=== PATIENT | male | born 1955 | race Caucasian/White ===

== ENCOUNTER 2023-08-09 18:56 | Inpatient (IN) | payer MEDICARE, OTHER ==
[2023-08-09 21:18] LABS: ALT 30 U/L (4-49); AST 30 U/L (17-59); African American GFR (CKD) 78 (>60 ml/min/1.73 sqM); Albumin 4.7 g/dL (3.5-5.0); Alkaline Phosphatase 81 U/L (38-126); Amylase 67 U/L (30-110); Anion Gap 16 mmol/L; Blood Urea Nitrogen 40 mg/dL (9-20); Calcium 10.2 mg/dL (8.4-10.2); Carbon Dioxide 24 mmol/L (22-30); Chloride 94 mmol/L (98-107); Glucose 187 mg/dL (74-99); Lipase 26 U/L (23-300); Non-African American GFR(CKD) 68 (>60 ml/min/1.73 sqM); Potassium 3.9 mmol/L (3.5-5.1); Sodium 134 mmol/L (137-145); Total Bilirubin 0.9 mg/dL (0.2-1.3); Total Protein 7.9 g/dL (6.3-8.2)
[2023-08-09 21:19] LABS: Basophils % (A) 0 %; Eosinophils % (A) 0 %; HCT 44.2 % (39.0-53.0); HGB 14.8 gm/dL (13.0-17.5); Lymphocytes # (A) 1.6 k/uL (1.0-4.8); Lymphocytes % (A) 8 %; MCH 31.4 pg (25.0-35.0); MCHC 33.4 g/dL (31.0-37.0); MCV 93.9 fL (80.0-100.0); Mean Platelet Volume 8.5; Monocytes # (A) 0.8 k/uL (0-1.0); Monocytes % (A) 4 %; Neutrophils # (A) 16.6 k/uL (1.3-7.7); Neutrophils % (A) 86 %; Platelet Count 222 k/uL (150-450); RBC 4.71 m/uL (4.30-5.90); RDW 13.1 % (11.5-15.5); WBC 19.3 k/uL (3.8-10.6)
[2023-08-09] MEDS ORDERED: VANCOMYCIN IV PER PHARMACY 1 EACH MISC MISCELLANE PRN (21:30)
[2023-08-09] MEDS ORDERED: SODIUM CHLORIDE 0.9% 1,000 ML IV STA (21:30)
[2023-08-09] MEDS ORDERED: SODIUM CHLORIDE 0.9% 2,000 ML IV STA (21:30)
[2023-08-09] MEDS ORDERED: PANTOPRAZOLE 40 MG/10 ML VIAL IVP STA (21:36)
[2023-08-09] MEDS ORDERED: HYDROmorphone 1 MG/ML 1 ML SYRINGE IVP STA (21:36)
[2023-08-09] MEDS ORDERED: ONDANSETRON 4 MG/2 ML VIAL IVP STA (21:36)
[2023-08-09] MEDS ORDERED: VANCOMYCIN 1,500 MG in SODIUM CHLORIDE 0.9% 500 ML 500 ML IVPB STA (21:39)
[2023-08-09] MEDS ORDERED: PIPERACILLIN-TAZOBACTAM 3.375 GM in SODIUM CHLORIDE 0.9% 100 ML IVPB STA ×2 (21:39→22:27)
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
--- NOTE | 2023-08-09 22:40 | CT ---
EXAM: CT Abdomen and Pelvis With Intravenous Contrast CLINICAL HISTORY: ITS.REASON CT Reason: generalized abd pain, distention TECHNIQUE: Axial computed tomography images of the abdomen and pelvis with intravenous contrast. CTDI is 34.66 mGy and DLP is 1592.3 mGy-cm. This CT exam was performed using one or more of the following dose reduction techniques: automated exposure control, adjustment of the mA and/or kV according to patient size, and/or use of iterative reconstruction technique. COMPARISON: No relevant prior studies available. FINDINGS: Lung bases: Unremarkable. No mass. No consolidation. ABDOMEN: Liver: Unremarkable. No mass. Gallbladder and bile ducts: Unremarkable. No calcified stones. No ductal dilation. Pancreas: Severe atrophy of the pancreas. No ductal dilation. Spleen: Unremarkable. No splenomegaly. Adrenals: Unremarkable. No mass. Kidneys and ureters: Unremarkable. No solid mass. No hydronephrosis. Stomach and bowel: Dilated small bowel measuring up to 3.9 cm, consistent with small bowel obstruction. The transition point is located in the mid abdomen on coronal image 32. Surgical evaluation recommended. No mucosal thickening. PELVIS: Appendix: No findings to suggest acute appendicitis. Bladder: Unremarkable. No mass. Reproductive: Prostate radiation markers. ABDOMEN and PELVIS: Intraperitoneal space: Unremarkable. No free air. No significant fluid collection. Bones/joints: Degenerative changes of the spine. No acute fracture. No dislocation. Soft tissues: Unremarkable. Vasculature: Atherosclerotic changes of the aorta. No abdominal aortic aneurysm. Lymph nodes: Unremarkable. No enlarged lymph nodes. IMPRESSION: 1. Dilated small bowel measuring up to 3.9 cm, consistent with small bowel obstruction. The transition point is located in the mid abdomen on coronal image 32. Surgical evaluation recommended. 2. Severe atrophy of the pancreas.
[2023-08-09] MEDS ORDERED: NALOXONE 0.4 MG/ML 1 ML VIAL IV PRN (23:11)
[2023-08-09] MEDS ORDERED: ONDANSETRON 4 MG/2 ML VIAL IVP PRN (23:11)
[2023-08-09] MEDS: HYDROmorphone 1 MG/ML 1 ML SYRINGE IVP PRN (23:18)
--- NOTE | 2023-08-09 23:29 | XR ---
EXAM: XR Chest, 1 View CLINICAL HISTORY: ITS.REASON XR Reason: NG placement TECHNIQUE: Frontal view of the chest. COMPARISON: No relevant prior studies available. FINDINGS: Lungs: Unremarkable. No consolidation. Pleural space: Unremarkable. No pneumothorax. Heart: Unremarkable. No cardiomegaly. Mediastinum: Unremarkable. Normal mediastinal contour. Bones/joints: Unremarkable. No acute fracture. Tubes, lines and devices: Feeding tube terminates in the stomach. IMPRESSION: Feeding tube terminates in the stomach.
[2023-08-10 01:17] LABS: Appearance,Urine Clear (Clear); Color,Urine Light Yellow
[2023-08-10 01:18] LABS: Bilirubin,Urine Negative (Negative); Blood,Urine Negative (Negative); Glucose,Urine (UA) Negative (Negative); Ketones,Urine 1+ (Negative); Leukocyte Esterase,Urine Negative (Negative); Nitrite,Urine Negative (Negative); Protein,Urine Negative (Negative); Urobilinogen,Urine 0.2 mg/dL (<2.0)
[2023-08-10] MEDS: HYDROmorphone 1 MG/ML 1 ML SYRINGE IVP PRN ×6 (02:07→18:21)
[2023-08-10] MEDS: PIPERACILLIN-TAZOBACTAM 3.375 GM in SODIUM CHLORIDE 0.9% 100 ML IVPB SCH ×3 (05:17→20:44)
[2023-08-10] MEDS: PANTOPRAZOLE 40 MG/10 ML VIAL IV SCH (08:45)
[2023-08-10] MEDS ORDERED: MORPHINE SULFATE 4 MG/ML SYRINGE IVP PRN (09:57)
[2023-08-10] MEDS: MORPHINE SULFATE 4 MG/ML SYRINGE IVP PRN ×10 (10:16→23:22)
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
[2023-08-10 12:43] LABS: African American GFR (CKD) 88 (>60 ml/min/1.73 sqM); Anion Gap 8 mmol/L; Blood Urea Nitrogen 32 mg/dL (9-20); Calcium 8.4 mg/dL (8.4-10.2); Carbon Dioxide 27 mmol/L (22-30); Chloride 101 mmol/L (98-107); Glucose 130 mg/dL (74-99); Non-African American GFR(CKD) 76 (>60 ml/min/1.73 sqM); Potassium 3.7 mmol/L (3.5-5.1); Sodium 136 mmol/L (137-145)
[2023-08-10 12:47] LABS: Basophils % (A) 0 %; Eosinophils % (A) 0 %; HCT 39.4 % (39.0-53.0); HGB 13.1 gm/dL (13.0-17.5); Lymphocytes # (A) 0.6 k/uL (1.0-4.8); Lymphocytes % (A) 5 %; MCH 31.8 pg (25.0-35.0); MCHC 33.2 g/dL (31.0-37.0); MCV 95.9 fL (80.0-100.0); Mean Platelet Volume 8.1; Monocytes # (A) 0.4 k/uL (0-1.0); Monocytes % (A) 3 %; Neutrophils % (A) 91 %; Platelet Count 162 k/uL (150-450); RBC 4.11 m/uL (4.30-5.90); RDW 12.9 % (11.5-15.5); WBC 13.2 k/uL (3.8-10.6)
[2023-08-10] MEDS ORDERED: TRIAMCINOLONE 0.1% CREAM 80 GM TUBE TOPICAL PRN (13:22)
--- NOTE | 2023-08-10 13:31 | P.CONS ---
History of Present Illness - Reason for Consult Coronary artery disease multiple other medical problems - History of Present Illness 67-year-old male admitted for small bowel obstruction with transition point in the mid abdomen. Patient is an NG tube still draining patient was started on IV fluids patient is on methadone as a part of her opiate withdrawal protocol. Unfortunately we cannot do methadone because of which patient is getting morphine and Dilaudid at this time. Patient had history of coronary artery disease with the cardiac catheterization and stents about any ago patient was started back on Plavix. REVIEW OF SYSTEMS: CONSTITUTIONAL: No fever, no malaise, no fatigue. HEENT: No recent visual problems or hearing problems. Denied any sore throat. CARDIOVASCULAR: No chest pain, orthopnea, PND, no palpitations, no syncope. PULMONARY: No shortness of breath, no cough, no hemoptysis. GASTROINTESTINAL: Patient had abdominal pain nausea vomiting on admission NEUROLOGICAL: No headaches, no weakness, no numbness. HEMATOLOGICAL: Denies any bleeding or petechiae. GENITOURINARY: Denies any burning micturition, frequency, or urgency. MUSCULOSKELETAL/RHEUMATOLOGICAL: Denies any joint pain, swelling, or any muscle pain. ENDOCRINE: Denies any polyuria or polydipsia. The rest of the 14-point review of systems is negative. PHYSICAL EXAMINATION: GENERAL: The patient is alert and oriented x3, not in any acute distress. Well developed, well nourished. HEENT: Pupils are round and equally reacting to light. EOMI. No scleral icterus. No conjunctival pallor. Normocephalic, atraumatic. No pharyngeal erythema. No thyromegaly. CARDIOVASCULAR: S1 and S2 present. No murmurs, rubs, or gallops. PULMONARY: Chest is clear to auscultation, no wheezing or crackles. ABDOMEN: Soft, NG tube in place patient does have bowel sounds MUSCULOSKELETAL: No joint swelling or deformity. EXTREMITIES: No cyanosis, clubbing, or pedal edema. NEUROLOGICAL: Gross neurological examination did not reveal any focal deficits. SKIN: No rashes. Assessment and plan -Small bowel obstruction: The 30 management with NG tube IV fluids at this time. -Coronary artery disease patient will be resumed on Plavix which can be given orally and clamp the NG tube can get rectal aspirin. -Depression sertraline will be resumed -History of opiate abuse and is on methadone for withdrawals. Patient is r eceiving frequent doses of of morphine and Dilaudid at this time Hypothyroidism -Hyperlipidemia For above-mentioned last medical problems medications can be held until patient can take by mouth medications DVT prophylaxis: As per primary service Past Medical History Past Medical History: Cancer, Hyperlipidemia, Hypertension Past Surgical History: Heart Catheterization With Stent Past Psychological History: No Psychological Hx Reported Past Alcohol Use History: None Reported Past Drug Use History: Opiates, Prescription Drug Abuse Medications and Allergies Home Medications Medication Instructions Recorded Confirmed Type Clopidogrel [Plavix] 75 mg PO DAILY 08/10/23 08/10/23 History Evolocumab [Repatha Pushtronex] 420 mg SQ Q28D 08/10/23 08/10/23 History Levothyroxine Sodium [Synthroid] 25 mcg PO DAILY 08/10/23 08/10/23 History Losartan Potassium 100 mg PO DAILY 08/10/23 08/10/23 History Methadone HCl [Methadone Intensol] 178 mg PO DAILY 08/10/23 08/10/23 History Pantoprazole [Protonix] 40 mg PO DAILY 08/10/23 08/10/23 History Rosuvastatin [Crestor] 20 mg PO DAILY 08/10/23 08/10/23 History Sertraline HCl [Zoloft] 50 mg PO DAILY 08/10/23 08/10/23 History Triamcinolone 0.1% Cream [Kenalog 1 applic TOPICAL BID PRN 08/10/23 08/10/23 History 0.1% Cream] hydroCHLOROthiazide 12.5 mg PO DAILY 08/10/23 08/10/23 History Allergies Allergy/AdvReac Type Severity Reaction Status Date / Time No Known Allergies Allergy Verified 08/10/23 08:24 Physical Exam Vitals: Vital Signs Temp Pulse Resp BP Pulse Ox 08/10/23 11:21 89 18 141/75 96 08/10/23 07:51 98.1 F 87 16 150/90 95 08/10/23 04:30 81 18 161/86 95 08/10/23 02:00 80 18 163/98 95 08/10/23 00:54 81 17 177/107 95 08/09/23 23:16 89 16 177/97 95 08/09/23 22:09 91 16 190/111 98 08/09/23 19:48 97.9 F 77 22 165/100 99 Intake and Output 08/09/23 08/10/23 08/10/23 22:59 06:59 14:59 Other: Weight 83.915 kg Results CBC & Chem 7: 08/10/23 12:18 08/10/23 12:18 Labs: Abnormal Lab Results - Last 24 Hours (Table) 08/09/23 08/09/23 08/09/23 Range/Units 20:33 20:33 20:33 WBC 19.3 H (3.8-10.6) k/uL RBC (4.30-5.90) m/uL Neutrophils # 16.6 H (1.3-7.7) k/uL Lymphocytes # (1.0-4.8) k/uL Sodium 134 L (137-145) mmol/L Chloride 94 L (98-107) mmol/L BUN 40 H (9-20) mg/dL Glucose 187 H (74-99) mg/dL Plasma Lactic Acid Faheem 4.2 H* (0.7-2.0) mmol/L Urine Ketones (Negative) 08/10/23 08/10/23 08/10/23 Range/Units 00:05 12:18 12:18 WBC 13.2 H (3.8-10.6) k/uL RBC 4.11 L (4.30-5.90) m/uL Neutrophils # 12.0 H (1.3-7.7) k/uL Lymphocytes # 0.6 L (1.0-4.8) k/uL Sodium 136 L (137-145) mmol/L Chloride (98-107) mmol/L BUN 32 H (9-20) mg/dL Glucose 130 H (74-99) mg/dL Plasma Lactic Acid Faheem (0.7-2.0) mmol/L Urine Ketones 1+ H (Negative)
[2023-08-10] MEDS: SERTRALINE 50 MG TAB PO SCH (15:33)
[2023-08-10] MEDS: CLOPIDOGREL 75 MG TAB PO SCH (15:33)
[2023-08-10] MEDS: hydrALAZINE HCL 20 MG/ML 1 ML VIAL IVP PRN (17:37)
[2023-08-10] MEDS: VANCOMYCIN 1,500 MG in SODIUM CHLORIDE 0.9% 500 ML 500 ML IVPB SCH (17:51)
[2023-08-10] MEDS: HEPARIN SODIUM,PORCINE 5,000 UNIT/ML 1 ML VIAL SQ SCH (20:43)
[2023-08-10] MEDS ORDERED: ALPRAZolam 0.5 MG TAB PO STA (21:48)
[2023-08-11] MEDS: MORPHINE SULFATE 4 MG/ML SYRINGE IVP PRN ×7 (00:49→08:54)
[2023-08-11] MEDS: hydrALAZINE HCL 20 MG/ML 1 ML VIAL IVP PRN ×2 (01:43→08:12)
[2023-08-11] MEDS: PIPERACILLIN-TAZOBACTAM 3.375 GM in SODIUM CHLORIDE 0.9% 100 ML IVPB SCH ×3 (04:04→23:13)
[2023-08-11] MEDS: HEPARIN SODIUM,PORCINE 5,000 UNIT/ML 1 ML VIAL SQ SCH ×2 (07:42→20:47)
[2023-08-11] MEDS: CLOPIDOGREL 75 MG TAB PO SCH (07:42)
[2023-08-11] MEDS: SERTRALINE 50 MG TAB PO SCH (07:42)
[2023-08-11] MEDS: PANTOPRAZOLE 40 MG/10 ML VIAL IV SCH (07:43)
[2023-08-11] MEDS: VANCOMYCIN 1,500 MG in SODIUM CHLORIDE 0.9% 500 ML 500 ML IVPB SCH (08:12)
[2023-08-11 11:08] LABS: Basophils # (A) 0.03 X 10*3/uL (0.00-0.10); Basophils % (A) 0.2 %; Eosinophils # (A) 0.01 X 10*3/uL (0.04-0.35); Eosinophils % (A) 0.1 %; HCT 41.1 % (39.6-50.0); HGB 13.6 g/dL (13.0-17.0); Lymphocytes # (A) 0.77 X 10*3/uL (0.90-5.00); Lymphocytes % (A) 5.8 %; MCH 31.4 pg (27.0-32.0); MCHC 33.1 g/dL (32.0-37.0); MCV 94.9 FL (80.0-97.0); Mean Platelet Volume 11.4 FL (9.5-12.2); Monocytes # (A) 0.87 X 10*3/uL (0.20-1.00); Monocytes % (A) 6.6 %; NRBC Per 100 WBC 0 X 10*3/uL (0.00-0.01); Neutrophils # (A) 11.51 X 10*3/uL (1.80-7.70); Platelet Count 161 X 10*3/uL (140-440); RBC 4.33 X 10*6/uL (4.40-5.60); RDW 13.4 % (11.5-14.5); WBC 13.23 X 10*3/uL (4.50-10.00)
[2023-08-11 12:11] LABS: Blood Urea Nitrogen 26.4 mg/dL (9.0-27.0); Calcium 9.1 mg/dL (8.7-10.3); Carbon Dioxide 20.2 mmol/L (21.6-31.8); Chloride 103 mmol/L (96-109); Glucose 108 mg/dL (70-110); Potassium 3.7 mmol/L (3.5-5.5); Sodium 141 mmol/L (135-145)
[2023-08-11] MEDS: METHADONE 10 MG TAB PO SCH (13:11)
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
[2023-08-11] MEDS: SODIUM CHLORIDE 0.9% 1,000 ML IV SCH ×2 (21:02→23:19)
--- NOTE | 2023-08-12 05:53 | P.PN ---
Subjective Progress Note Date: 08/11/23 67-year-old male admitted for small bowel obstruction with transition point in the mid abdomen. Patient is an NG tube still draining patient was started on IV fluids patient is on methadone as a part of her opiate withdrawal protocol. Unfortunately we cannot do methadone because of which patient is getting morphine and Dilaudid at this time. Patient had history of coronary artery disease with the cardiac catheterization and stents about any ago patient was started back on Plavix. 08/11/2023 Patient evaluated today resting in bed reports improvement in his abdominal discomfort. He continues with NG tube in place, about 100 mls of drainage overnight. He remains NPO. He is requesting his methadone states he feels sick after going 24 hours without he has been on it for years. He is okay with the narcotics being discontinued. REVIEW OF SYSTEMS: CONSTITUTIONAL: No fever, no malaise, no fatigue. HEENT: No recent visual problems or hearing problems. Denied any sore throat. CARDIOVASCULAR: No chest pain, orthopnea, PND, no palpitations, no syncope. PULMONARY: No shortness of breath, no cough, no hemoptysis. GASTROINTESTINAL: Patient had abdominal pain nausea vomiting on admission NEUROLOGICAL: No headaches, no weakness, no numbness. PHYSICAL EXAMINATION: GENERAL: The patient is alert and oriented x3, not in any acute distress. Well developed, well nourished. HEENT: Pupils are round and equally reacting to light. EOMI. No scleral icterus. No conjunctival pallor. Normocephalic, atraumatic. No pharyngeal erythema. No thyromegaly. CARDIOVASCULAR: S1 and S2 present. No murmurs, rubs, or gallops. PULMONARY: Chest is clear to auscultation, no wheezing or crackles. ABDOMEN: Soft, NG tube in place patient does have bowel sounds MUSCULOSKELETAL: No joint swelling or deformity. EXTREMITIES: No cyanosis, clubbing, or pedal edema. NEUROLOGICAL: Gross neurological examination did not reveal any focal deficits. SKIN: No rashes. Assessment and plan -Small bowel obstruction: Conservative management with NG tube IV fluids at this time. -Coronary artery disease Plavix has been recommended to be held by primary team and clamp the NG tube can get rectal aspirin. -Depression sertraline will be resumed -History of opiate abuse and is on methadone for withdrawals. Patient is receiving frequent doses of of morphine and Dilaudid at this time which will be discontinued patient can be resumed on methadone. -Hypothyroidism -Hyperlipidemia For above-mentioned last medical problems medications can be held until patient can take by mouth medications DVT prophylaxis: As per primary service The impression and plan of care has been dictated by Maggie Mcdonnell, Nurse Practitioner as directed. Dr. Kartik MD I have performed a history and physical examination and medical decision making of this patient, discussed the same with the dictator, and agree with the dictators assessment and plan as written, documented as a scribe. Based on total visit time, I have performed more than 50% of this visit. Objective - Vital Signs Vital signs: Vital Signs Temp 98.4 F 08/12/23 01:09 Pulse 97 08/12/23 02:00 Resp 16 08/12/23 02:00 BP 166/87 08/12/23 01:09 Pulse Ox 94 L 08/12/23 01:09 FiO2 Intake & Output 08/11/23 08/11/23 08/12/23 06:59 18:59 06:59 Intake Total 600 Output Total 900 850 240 Balance -300 -850 -240 Intake: Intake, IV Titration 600 Amount Piperacillin-Tazobactam 3 100 .375 gm In Sodium Chloride 0.9% 100 ml @ 25 mls/hr IVPB Q8H [facility] Rx#: [id number] Vancomycin 1,500 mg In 500 Sodium Chloride 0.9% 500 ml 500 ml @ 167 mls/hr IVPB Q16H [facility] Rx#: [id number] Output: Gastric Drainage 100 850 Urine 800 240 Other: Voiding Method Urinal Urinal Urinal - Labs CBC & Chem 7: 08/11/23 05:45 08/11/23 05:45 Labs: Abnormal Lab Results - Last 24 Hours (Table) 08/11/23 08/11/23 Range/Units 05:45 05:45 WBC 13.23 H (4.50-10.00) X 10*3/uL RBC 4.33 L (4.40-5.60) X 10*6/uL Neutrophils # 11.51 H (1.80-7.70) X 10*3/uL Lymphocytes # 0.77 L (0.90-5.00) X 10*3/uL Eosinophils # 0.01 L (0.04-0.35) X 10*3/uL Carbon Dioxide 20.2 L (21.6-31.8) mmol/L Anion Gap 17.80 H (4.00-12.00) mmol/L BUN/Creatinine Ratio 26.40 H (12.00-20.00) Ratio Microbiology - Last 24 Hours (Table) 08/09/23 22:05 Blood Culture - Preliminary Blood 08/09/23 21:45 Blood Culture - Preliminary Blood Assessment and Plan Time with Patient: Less than 30
[2023-08-12] MEDS: PIPERACILLIN-TAZOBACTAM 3.375 GM in SODIUM CHLORIDE 0.9% 100 ML IVPB SCH ×3 (05:54→20:56)
[2023-08-12] MEDS ORDERED: Potassium Replacement Protocol 1 EACH MISC MISCELLANE PRN (09:23)
[2023-08-12] MEDS: METHADONE 10 MG TAB PO SCH (10:56)
[2023-08-12] MEDS: PANTOPRAZOLE 40 MG/10 ML VIAL IV SCH (11:31)
[2023-08-12] MEDS: hydrALAZINE HCL 20 MG/ML 1 ML VIAL IVP PRN (11:32)
[2023-08-12] MEDS: SERTRALINE 50 MG TAB PO SCH (11:34)
[2023-08-12] MEDS: HEPARIN SODIUM,PORCINE 5,000 UNIT/ML 1 ML VIAL SQ SCH ×2 (11:34→20:56)
[2023-08-12] MEDS: POTASSIUM CHLORIDE 10 MEQ in WATER FOR INJECTION 1 100ML.BAG IVPB SCH ×2 (11:42→15:59)
[2023-08-12 12:08] LABS: HCT 37.7 % (39.6-50.0); HGB 11.9 g/dL (13.0-17.0); MCH 32.1 pg (27.0-32.0); MCHC 31.6 g/dL (32.0-37.0); MCV 101.6 FL (80.0-97.0); Mean Platelet Volume 11.3 FL (9.5-12.2); NRBC Per 100 WBC 0 X 10*3/uL (0.00-0.01); Platelet Count 166 X 10*3/uL (140-440); RBC 3.71 X 10*6/uL (4.40-5.60); RDW 13.9 % (11.5-14.5); WBC 7.44 X 10*3/uL (4.50-10.00)
[2023-08-12 12:09] LABS: Basophils # (A) 0.03 X 10*3/uL (0.00-0.10); Basophils % (A) 0.4 %; Eosinophils # (A) 0.12 X 10*3/uL (0.04-0.35); Eosinophils % (A) 1.6 %; Lymphocytes # (A) 0.77 X 10*3/uL (0.90-5.00); Lymphocytes % (A) 10.3 %; Monocytes # (A) 0.51 X 10*3/uL (0.20-1.00); Monocytes % (A) 6.9 %; Neutrophils # (A) 5.97 X 10*3/uL (1.80-7.70); Neutrophils % (A) 80.3 %
[2023-08-12 13:57] VITALS: BMI 28.1
--- NOTE | 2023-08-12 15:37 | P.PN ---
Subjective Progress Note Date: 08/12/23 67-year-old male admitted for small bowel obstruction with transition point in the mid abdomen. Patient is an NG tube still draining patient was started on IV fluids patient is on methadone as a part of her opiate withdrawal protocol. Unfortunately we cannot do methadone because of which patient is getting morphine and Dilaudid at this time. Patient had history of coronary artery disease with the cardiac catheterization and stents about any ago patient was started back on Plavix. 08/11/2023 Patient evaluated today resting in bed reports improvement in his abdominal discomfort. He continues with NG tube in place, about 100 mls of drainage overnight. He remains NPO. He is requesting his methadone states he feels sick after going 24 hours without he has been on it for years. He is okay with the narcotics being discontinued. 08/12/2023 Patient remains on medical floor. NG tube in place about 70 mls of drainage overnight. He is not passing gas yet. Abdomen is softer has some sluggish bowel sounds. He was resumed on methadone reports pain has improved and less agitated. Avoid narcotics while on methadone. REVIEW OF SYSTEMS: CONSTITUTIONAL: No fever, no malaise, no fatigue. HEENT: No recent visual problems or hearing problems. Denied any sore throat. CARDIOVASCULAR: No chest pain, orthopnea, PND, no palpitations, no syncope. PULMONARY: No shortness of breath, no cough, no hemoptysis. GASTROINTESTINAL: Patient had abdominal pain nausea vomiting on admission NEUROLOGICAL: No headaches, no weakness, no numbness. PHYSICAL EXAMINATION: GENERAL: The patient is alert and oriented x3, not in any acute distress. Well developed, well nourished. HEENT: Pupils are round and equally reacting to light. EOMI. No scleral icterus. No conjunctival pallor. Normocephalic, atraumatic. No pharyngeal erythema. No thyromegaly. CARDIOVASCULAR: S1 and S2 present. No murmurs, rubs, or gallops. PULMONARY: Chest is clear to auscultation, no wheezing or crackles. ABDOMEN: Soft, NG tube in place patient does have bowel sounds MUSCULOSKELETAL: No joint swelling or deformity. EXTREMITIES: No cyanosis, clubbing, or pedal edema. NEUROLOGICAL: Gross neurological examination did not reveal any focal deficits. SKIN: No rashes. Assessment and plan -Small bowel obstruction: Conservative management with NG tube IV fluids at this time. -Coronary artery disease Plavix has been recommended to be held by primary team and clamp the NG tube can get rectal aspirin. -Depression sertraline will be resumed -History of opiate abuse and is on methadone for withdrawals. Patient is receiving frequent doses of of morphine and Dilaudid at this time which will be discontinued patient can be resumed on methadone. -Hypothyroidism -Hyperlipidemia For above-mentioned last medical problems medications can be held until patient can take by mouth medications DVT prophylaxis: As per primary service The impression and plan of care has been dictated by Maggie Mcdonnell, Nurse Practitioner as directed. Dr. Kartik MD I have performed a history and physical examination and medical decision making of this patient, discussed the same with the dictator, and agree with the dic tators assessment and plan as written, documented as a scribe. Based on total visit time, I have performed more than 50% of this visit. Objective - Vital Signs Vital signs: Vital Signs Temp 97.8 F 08/12/23 14:29 Pulse 89 08/12/23 14:29 Resp 14 08/12/23 14:29 BP 126/79 08/12/23 14:29 Pulse Ox 97 08/12/23 14:29 FiO2 Intake & Output 08/11/23 08/12/23 08/12/23 18:59 06:59 18:59 Output Total 850 310 Balance -850 -310 Weight 83.915 kg Output: Gastric Drainage 850 70 Urine 240 Other: Voiding Method Urinal Urinal Urinal - Labs CBC & Chem 7: 08/12/23 06:53 08/11/23 05:45 Labs: Abnormal Lab Results - Last 24 Hours (Table) 08/12/23 Range/Units 06:53 RBC 3.71 L (4.40-5.60) X 10*6/uL Hgb 11.9 L (13.0-17.0) g/dL Hct 37.7 L (39.6-50.0) % MCV 101.6 H (80.0-97.0) FL MCH 32.1 H (27.0-32.0) pg MCHC 31.6 L (32.0-37.0) g/dL Lymphocytes # 0.77 L (0.90-5.00) X 10*3/uL Microbiology - Last 24 Hours (Table) 08/09/23 22:05 Blood Culture - Preliminary Blood 08/09/23 21:45 Blood Culture - Preliminary Blood Assessment and Plan Time with Patient: Less than 30
[2023-08-12] MEDS: SODIUM CHLORIDE 0.9% 1,000 ML IV SCH (16:00)
[2023-08-12] MEDS ORDERED: IOPAMIDOL CONTRAST (ORAL USE) VIAL PO PRN (16:04)
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
[2023-08-12] MEDS ORDERED: bisacodyL 10 MG SUPP RECTAL STA (16:26)
[2023-08-13] MEDS: SODIUM CHLORIDE 0.9% 1,000 ML IV SCH ×2 (04:38→08:30)
[2023-08-13] MEDS: PIPERACILLIN-TAZOBACTAM 3.375 GM in SODIUM CHLORIDE 0.9% 100 ML IVPB SCH ×2 (05:01→13:16)
[2023-08-13] MEDS: METHADONE 10 MG TAB PO SCH (08:28)
[2023-08-13] MEDS: SERTRALINE 50 MG TAB PO SCH (08:29)
[2023-08-13] MEDS: HEPARIN SODIUM,PORCINE 5,000 UNIT/ML 1 ML VIAL SQ SCH ×2 (08:29→21:10)
[2023-08-13] MEDS: PANTOPRAZOLE 40 MG/10 ML VIAL IV SCH (08:30)
--- NOTE | 2023-08-13 11:55 | P.PN ---
Subjective Progress Note Date: 08/13/23 67-year-old male admitted for small bowel obstruction with transition point in the mid abdomen. Patient is an NG tube still draining patient was started on IV fluids patient is on methadone as a part of her opiate withdrawal protocol. Unfortunately we cannot do methadone because of which patient is getting morphine and Dilaudid at this time. Patient had history of coronary artery disease with the cardiac catheterization and stents about any ago patient was started back on Plavix. 08/11/2023 Patient evaluated today resting in bed reports improvement in his abdominal discomfort. He continues with NG tube in place, about 100 mls of drainage overnight. He remains NPO. He is requesting his methadone states he feels sick after going 24 hours without he has been on it for years. He is okay with the narcotics being discontinued. 08/12/2023 Patient remains on medical floor. NG tube in place about 70 mls of drainage overnight. He is not passing gas yet. Abdomen is softer has some sluggish bowel sounds. He was resumed on methadone reports pain has improved and less agitated. Avoid narcotics while on methadone. 08/13/2023 Patient evaluated today on the medical floor. NG tube in place, 200 mls of gastric output overnight. Patient has ice chips at bedside. Abdomen is soft, increased bowel sounds. He had a BM passing some gas. He wants to eat. Labs no available for today. REVIEW OF SYSTEMS: CONSTITUTIONAL: No fever, no malaise, no fatigue. HEENT: No recent visual problems or hearing problems. Denied any sore throat. CARDIOVASCULAR: No chest pain, orthopnea, PND, no palpitations, no syncope. PULMONARY: No shortness of breath, no cough, no hemoptysis. GASTROINTESTINAL: Patient had abdominal pain nausea vomiting on admission NEUROLOGICAL: No headaches, no weakness, no numbness. PHYSICAL EXAMINATION: GENERAL: The patient is alert and oriented x3, not in any acute distress. Well developed, well nourished. HEENT: Pupils are round and equally reacting to light. EOMI. No scleral icterus. No conjunctival pallor. Normocephalic, atraumatic. No pharyngeal erythema. No thyromegaly. CARDIOVASCULAR: S1 and S2 present. No murmurs, rubs, or gallops. PULMONARY: Chest is clear to auscultation, no wheezing or crackles. ABDOMEN: Soft, NG tube in place patient does have bowel sounds MUSCULOSKELETAL: No joint swelling or deformity. EXTREMITIES: No cyanosis, clubbing, or pedal edema. NEUROLOGICAL: Gross neurological examination did not reveal any focal deficits. SKIN: No rashes. Assessment and plan -Small bowel obstruction: Conservative management with NG tube IV fluids at this time. Patient had a bowel movement pending general surgery follow up possible diet today. -Coronary artery disease Plavix has been recommended to be held by primary team and clamp the NG tube can get rectal aspirin. -Depression sertraline will be resumed -History of opiate abuse and is on methadone for withdrawals. Patient is receiving frequent doses of of morphine and Dilaudid at this time which will be discontinued patient can be resumed on methadone. -Hypothyroidism -Hyperlipidemia For above-mentioned last medical problems medications can be held until patient can take by mouth medications DVT prophylaxis: As per primary service The impression and plan of care has been dictated by Maggie Mcdonnell Nurse Practitioner as directed. Dr. Kartik MD I have performed a history and physical examination and medical decision making of this patient, discussed the same with the dictator, and agree with the dictators assessment and plan as written, documented as a scribe. Based on total visit time, I have performed more than 50% of this visit. Objective - Vital Signs Vital signs: Vital Signs Temp 98.4 F 08/12/23 19:15 Pulse 86 08/13/23 00:40 Resp 18 08/13/23 00:40 BP 131/57 08/13/23 00:40 Pulse Ox 98 08/13/23 00:40 FiO2 Intake & Output 08/12/23 08/13/23 08/13/23 18:59 06:59 18:59 Intake Total 1500 900 Output Total 700 900 Balance 800 0 Weight 83.915 kg Intake: Intake, IV Titration 1200 900 Amount Piperacillin-Tazobactam 3 100 .375 gm In Sodium Chloride 0.9% 100 ml @ 25 mls/hr IVPB Q8H [facility] Rx#: [id number] Potassium Chloride 10 meq 200 In Water For Injection 1 100ml.bag @ 100 mls/hr IVPB Q1H [facility] Rx#: [id number] Sodium Chloride 0.9% 1, 900 900 000 ml @ 75 mls/hr IV . [id number] [facility] Rx#:[id number] Oral 300 Output: Gastric Drainage 700 900 Other: Voiding Method Urinal - Labs CBC & Chem 7: 08/12/23 06:53 08/11/23 05:45 Labs: Abnormal Lab Results - Last 24 Hours (Table) 08/12/23 Range/Units 06:53 RBC 3.71 L (4.40-5.60) X 10*6/uL Hgb 11.9 L (13.0-17.0) g/dL Hct 37.7 L (39.6-50.0) % MCV 101.6 H (80.0-97.0) FL MCH 32.1 H (27.0-32.0) pg MCHC 31.6 L (32.0-37.0) g/dL Lymphocytes # 0.77 L (0.90-5.00) X 10*3/uL Microbiology - Last 24 Hours (Table) 08/09/23 22:05 Blood Culture - Preliminary Blood 08/09/23 21:45 Blood Culture - Preliminary Blood Assessment and Plan Time with Patient: Less than 30
[2023-08-13 12:07] LABS: African American GFR (CKD) 69 (>60 ml/min/1.73 sqM); Anion Gap 9 mmol/L; Blood Urea Nitrogen 36 mg/dL (9-20); Calcium 8.4 mg/dL (8.4-10.2); Carbon Dioxide 21 mmol/L (22-30); Chloride 111 mmol/L (98-107); Glucose 77 mg/dL (74-99); Magnesium 2.3 mg/dL (1.6-2.3); Non-African American GFR(CKD) 59 (>60 ml/min/1.73 sqM); Potassium 3.7 mmol/L (3.5-5.1); Sodium 141 mmol/L (137-145)
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
[2023-08-14] MEDS: SODIUM CHLORIDE 0.9% 1,000 ML IV SCH ×2 (06:10→21:39)
[2023-08-14] MEDS: SERTRALINE 50 MG TAB PO SCH (08:09)
[2023-08-14] MEDS: HEPARIN SODIUM,PORCINE 5,000 UNIT/ML 1 ML VIAL SQ SCH ×2 (08:09→20:13)
[2023-08-14] MEDS: METHADONE 10 MG TAB PO SCH (08:09)
[2023-08-14] MEDS: PANTOPRAZOLE 40 MG/10 ML VIAL IV SCH (08:09)
[2023-08-14] MEDS: IOPAMIDOL CONTRAST (ORAL USE) VIAL PO PRN ×2 (10:35→11:33)
[2023-08-14] MEDS ORDERED: POTASSIUM CHLORIDE ER 20 MEQ TAB.ER PO STA (11:31)
--- NOTE | 2023-08-14 11:33 | P.PN ---
Subjective Progress Note Date: 08/14/23 67-year-old male admitted for small bowel obstruction with transition point in the mid abdomen. Patient is an NG tube still draining patient was started on IV fluids patient is on methadone as a part of her opiate withdrawal protocol. Unfortunately we cannot do methadone because of which patient is getting morphine and Dilaudid at this time. Patient had history of coronary artery disease with the cardiac catheterization and stents about any ago patient was started back on Plavix. 08/11/2023 Patient evaluated today resting in bed reports improvement in his abdominal discomfort. He continues with NG tube in place, about 100 mls of drainage overnight. He remains NPO. He is requesting his methadone states he feels sick after going 24 hours without he has been on it for years. He is okay with the narcotics being discontinued. 08/12/2023 Patient remains on medical floor. NG tube in place about 70 mls of drainage overnight. He is not passing gas yet. Abdomen is softer has some sluggish bowel sounds. He was resumed on methadone reports pain has improved and less agitated. Avoid narcotics while on methadone. 08/13/2023 Patient evaluated today on the medical floor. NG tube in place, 200 mls of gastric output overnight. Patient has ice chips at bedside. Abdomen is soft, increased bowel sounds. He had a BM passing some gas. He wants to eat. Labs no available for today. 08/14/2023 Patient is evaluated today on the medical floor. NG tube has been removed he did have a large BM today. He is on clear liquid diet and tolerating abdominal pain has improved. He is on home dose of methadone and otherwise has no acute complaints. He will go for follow up abdominal pelvis CT today. He could be considered for discharge today if surgery clears. REVIEW OF SYSTEMS: CONSTITUTIONAL: No fever, no malaise, no fatigue. HEENT: No recent visual problems or hearing problems. Denied any sore throat. CARDIOVASCULAR: No chest pain, orthopnea, PND, no palpitations, no syncope. PULMONARY: No shortness of breath, no cough, no hemoptysis. GASTROINTESTINAL: Patient had abdominal pain nausea vomiting on admission NEUROLOGICAL: No headaches, no weakness, no numbness. PHYSICAL EXAMINATION: GENERAL: The patient is alert and oriented x3, not in any acute distress. Well developed, well nourished. HEENT: Pupils are round and equally reacting to light. EOMI. No scleral icterus. No conjunctival pallor. Normocephalic, atraumatic. No pharyngeal erythema. No thyromegaly. CARDIOVASCULAR: S1 and S2 present. No murmurs, rubs, or gallops. PULMONARY: Chest is clear to auscultation, no wheezing or crackles. ABDOMEN: Soft, NG tube in place patient does have bowel sounds MUSCULOSKELETAL: No joint swelling or deformity. EXTREMITIES: No cyanosis, clubbing, or pedal edema. NEUROLOGICAL: Gross neurological examination did not reveal any focal deficits. SKIN: No rashes. Assessment and plan -Small bowel obstruction: Conservative management with NG tube IV fluids at this time. Patient had a bowel movement pending general surgery follow up possible diet today. -Coronary artery disease Plavix has been recommended to be held by primary team and clamp the NG tube can get rectal aspirin. -Depression sertraline will be resumed -History of opiate abuse and is on methadone for withdrawals. Patient is receiving frequent doses of of morphine and Dilaudid at this time which will be discontinued patient can be resumed on methadone. -Hypothyroidism -Hyperlipidemia For above-mentioned last medical problems medications can be held until patient can take by mouth medications DVT prophylaxis: As per primary service The impression and plan of care has been dictated by Maggie Mcdonnell Nurse Practitioner as directed. Dr. Kartik MD I have performed a history and physical examination and medical decision making of this patient, discussed the same with the dictator, and agree with the dictators assessment and plan as written, documented as a scribe. Based on total visit time, I have performed more than 50% of this visit. Objective - Vital Signs Vital signs: Vital Signs Temp 98.3 F 08/14/23 07:57 Pulse 74 08/14/23 07:57 Resp 20 08/14/23 07:57 BP 171/94 08/14/23 07:57 Pulse Ox 98 08/14/23 07:57 FiO2 Intake & Output 08/13/23 08/14/23 08/14/23 18:59 06:59 18:59 Intake Total 1500 Balance 1500 Intake: Oral 1500 Other: # Voids 3 - Labs CBC & Chem 7: 08/12/23 06:53 08/13/23 06:49 Labs: Abnormal Lab Results - Last 24 Hours (Table) 08/13/23 Range/Units 06:49 Chloride 111 H (98-107) mmol/L Carbon Dioxide 21 L (22-30) mmol/L BUN 36 H (9-20) mg/dL Assessment and Plan Time with Patient: Less than 30
[2023-08-14] MEDS: LOSARTAN 50 MG TAB PO SCH (12:35)
[2023-08-14] MEDS: ATORVASTATIN 40 MG TAB PO SCH (12:35)
[2023-08-14] MEDS: LEVOTHYROXINE 25 MCG TAB PO SCH (13:30)
--- NOTE | 2023-08-14 15:16 | CT ---
EXAMINATION TYPE: CT abdomen pelvis w con DATE OF EXAM: 08/14/2023 COMPARISON: 08/09/2003 INDICATION: follow up on SBO DLP: 1065 mGycm, Automated exposure control for dose reduction was used. CONTRAST: 100 mL of Isovue 300. Study performed with Oral Contrast TECHNIQUE: Axial images were obtained from above the diaphragm to the pubic rami in the axial plane a t 5 mm thick sections. Reconstructed images are reviewed on the computer in the coronal plane. FINDINGS: Limited CT sections are obtained the lung bases. There is a triangular density in the posterior late ral left lung base may be some atelectasis measuring 2.6 cm. Lung bases otherwise appear clear. CT ABDOMEN: Liver: Normal Spleen: Normal Pancreas: Severely atrophic and barely visible Adrenal glands: The adrenal glands are normal. Gallbladder: Normal Kidneys: No masses are evident. No hydronephrosis is present. No cysts are present. Aorta: Minimal Vascular calcification is within the aorta. Inferior vena cava: Normal. CT PELVIS: Loops of bowel within the abdomen and pelvis are normal. No suspicious dilated loops of bowel are evident. No obstructing loops of bowel are evident. Oral contrast extends to the proximal transverse colon. Fecal debris is seen:. Appendix: Not identified. No dilated tubular structure or inflammatory changes evident. Urinary bladder: Normal. Genitourinary structures: Prostate appears normal Osseous structures: No suspicious lytic or sclerotic lesions. Degenerative disc changes are present. IMPRESSION: 1. No suspicious changes to suggest obstruction. Oral contrast extends to the transverse colon. No d ilated: Is evident. Fecal material is within the colon. 2. Severely atrophic pancreas 3. New density posterior left lung base likely atelectasis.
--- NOTE | 2023-08-14 16:50 | P.PN ---
Subjective Progress Note Date: 08/14/23 He is having bowel movements and tolerating diet. He is passing flatus. No abdominal pain. CT unremarkable for progressive bowel obstruction. Advance low fiber diet. Objective - Vital Signs Vital signs: Vital Signs Temp 98.0 F 08/14/23 13:38 Pulse 75 08/14/23 13:38 Resp 20 08/14/23 13:38 BP 121/71 08/14/23 13:38 Pulse Ox 97 08/14/23 13:38 FiO2 Intake & Output 08/13/23 08/14/23 08/14/23 18:59 06:59 18:59 Intake Total 1500 Balance 1500 Intake: Oral 1500 Other: # Voids 3 - Labs CBC & Chem 7: 08/12/23 06:53 08/13/23 06:49
[2023-08-15 02:28] VITALS: TEMP 98.3
[2023-08-15] MEDS: LEVOTHYROXINE 25 MCG TAB PO SCH (05:36)
[2023-08-15 08:29] VITALS: BP 129/90; PULSE 71; RESP 20
[2023-08-15] MEDS: ATORVASTATIN 40 MG TAB PO SCH (09:56)
[2023-08-15] MEDS: HEPARIN SODIUM,PORCINE 5,000 UNIT/ML 1 ML VIAL SQ SCH (09:56)
[2023-08-15] MEDS: SERTRALINE 50 MG TAB PO SCH (09:57)
[2023-08-15] MEDS: LOSARTAN 50 MG TAB PO SCH (09:57)
[2023-08-15] MEDS: METHADONE 10 MG TAB PO SCH (10:04)
[2023-08-15] MEDS: PANTOPRAZOLE 40 MG/10 ML VIAL IV SCH (10:07)
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
--- NOTE | 2023-08-17 08:29 | CDI ---
Documentation Clarification Form Date: 08/17/2023 08:08:53 AM From: Charlee Reis Admit Date: 08/09/2023 11:11:00 PM Patient Name: Héctor Booker Visit Number: [id number] Discharge Date: 08/15/2023 02:08:00 PM ATTENTION: The Clinical Documentation Specialists (CDI) and [facility] Coding Staff appreciate your assistance in clarifying documentation. Please respond to the clarification below the line at the bottom and electronically sign. The CDI & [facility] Coding staff will review the response and follow-up if needed. Please note: Queries are made part of the Legal Health Record. If you have any questions, please contact the author of this message via ITS. Dr. Abrahan Salazar, Sepsis is documented is only in the ED Note which may lack sufficient clinical evidence/support in the medical record. Additional clarification is requested. History/Risk Factors: Hypothyroidism, HTN, depression, dehydration, CAD s/p stent, on Methadone Clinical Indicators: T 97.9, P 77, R 22, BP 165/100, O2 99; WBC 19.3, Neutrophils 16.6, Lactic acid 4.2 Treatment: IV Zoysn, IV Vancomycin, IV fluids Please clarify if sepsis is a valid diagnosis? [ xx ] Yes, Sepsis is present on admission as evidence by (additional clinical support): ____Elevated wBC, high lactic acid [ ] No, Sepsis is ruled out [ ] Other (please specify diagnosis) [ ] Unable to determine MTDD
== END 2023-08-15 14:08 | disposition home or self-care (01) | DRG 872 ==
LOC: EC 18:56 → 4SSUR 23:11
PROVIDERS: ADMIT Surgery; ATTEND Surgery
PROC: 0D9670Z Drainage of Stomach with Drainage Device, Via Natural or Artificial Opening (ICD-10-PCS; principal; 2023-08-09)
DX: A41.9 Sepsis, unspecified organism (principal); K56.609 Unspecified intestinal obstruction, unspecified as to partial versus complete obstruction; F11.20 Opioid dependence, uncomplicated; E03.9 Hypothyroidism, unspecified; E78.5 Hyperlipidemia, unspecified; I10 Essential (primary) hypertension; F32.A Depression, unspecified; E86.0 Dehydration; I25.10 Atherosclerotic heart disease of native coronary artery without angina pectoris; Z79.02 Long term (current) use of antithrombotics/antiplatelets; Z79.890 Hormone replacement therapy; Z79.899 Other long term (current) drug therapy; Z95.5 Presence of coronary angioplasty implant and graft
CPT/HCPCS: 36415; 71045; 74177; 80048; 80053; 81003; 82150; 83605; 83690; 83735; 85025; 87040; 87636; 93005; 96361; 96366; 96367; 96375; 96376; 99291